=== PATIENT | male | born 1960 | race Caucasian/White ===

== ENCOUNTER 2022-03-16 02:49 | Inpatient (IN) ==
[2022-03-16] MEDS ORDERED: Nitroglycerin 0.4 MG TAB.SUBL SL PRN (03:04)
[2022-03-16 03:33] LABS: Basophils # 0.1 K/mcL (0.0-0.2); Eosinophils # 0.2 K/mcL (0.0-0.6); Eosinophils % 2.3 %; Hematocrit 50.4 % (37.5-50.1); Hemoglobin 16.7 g/dL (12.9-16.9); Immature Granulocytes % 0.3 % (0-4); Lymphocytes # 1.4 K/mcL (0.6-4.6); Lymphocytes % 15.7 %; Mean Corpuscular HGB Conc 33.1 g/dL (31.6-35.5); Mean Corpuscular Hemoglobin 30.7 pg (28.0-33.3); Mean Corpuscular Volume 92.6 fL (83.0-100.0); Mean Platelet Volume 11.3 fL (9.4-12.4); Monocytes # 0.7 K/mcL (0.0-1.3); Monocytes % 7.9 %; Neutrophils # 6.7 K/mcL (1.6-8.9); Platelet Count 160 K/mcL (140-400); Red Blood Count 5.44 M/mcL (4.19-5.50); Red Cell Distribution Width 12.3 % (11.5-14.5); Segmented Neutrophils % 72.8 %; White Blood Count 9.2 K/mcL (4.3-11.1)
[2022-03-16 03:44] LABS: Alanine Aminotransferase 12 Units/L (7-52); Albumin 4.4 g/dL (3.5-5.7); Albumin/Globulin Ratio 1.6 (1.1-2.2); Alkaline Phosphatase 96 Units/L (34-104); Aspartate Amino Transferase 10 Units/L (13-39); BUN/Creatinine Ratio 13 (6-26); Bilirubin,Direct 0.1 mg/dL (0.0-0.2); Bilirubin,Indirect 0.4 mg/dL (0.0-1.0); Bilirubin,Total 0.5 mg/dL (0.3-1.0); Blood Urea Nitrogen 15 mg/dL (8-23); Calcium 9.6 mg/dL (8.6-10.3); Carbon Dioxide 27 mEq/L (23-29); Chloride 102 mEq/L (98-107); Chol/HDL Ratio 6.7 (0-4.9); Cholesterol 221 mg/dL (< 200); Globulin 2.7 g/dL (2.4-3.5); Glucose 378 mg/dL (70-105); HDL Cholesterol 33 mg/dL (40-59); LDL Cholesterol,Calculated 125 mg/dL (< 100); Osmolality,Calculated 300 (280-300); Potassium 4.8 mEq/L (3.5-5.1); Sodium 137 mEq/L (136-145); Total Protein 7.1 g/dL (6.4-8.9); Triglycerides 314 mg/dL (< 150); eGFR For African Americans > 60 (> 60); eGFR For Non-African Americans > 60 (> 60)
[2022-03-16 03:47] LABS: Troponin I 0.09 ng/mL (< 0.04)
[2022-03-16] MEDS ORDERED: *HR* Heparin 5,000 UNIT/ML VIAL IVP ONE (03:50)
[2022-03-16] MEDS ORDERED: *HR* Heparin 5,000 UNIT/ML VIAL IVP PRN ×2 (03:50)
[2022-03-16 04:00] LABS: Thyroid Stimulating Hormone 1.664 mcIU/mL (0.340-5.600)
[2022-03-16] MEDS ORDERED: Heparin 25,000UNIT/250ML 1/2NS 25,000 UNIT/250 ML IV.SOLN IVC SCH (04:00)
[2022-03-16 04:08] LABS: Heparin anti-factor XA UFH < 0.04 IU/mL (0.30-0.70)
[2022-03-16 04:09] LABS: Prothrombin Time 11.2 Seconds (9.4-12.1)
[2022-03-16] MEDS ORDERED: *HR* FentaNYL (PF) 100 MCG/2 ML VIAL IVP ONE (04:19)
[2022-03-16 04:39] LABS: Hematocrit 49.7 % (37.5-50.1); Hemoglobin 16.9 g/dL (12.9-16.9); Mean Platelet Volume 11.1 fL (9.4-12.4); Platelet Count 170 K/mcL (140-400); Red Blood Count 5.46 M/mcL (4.19-5.50); Red Cell Distribution Width 12.4 % (11.5-14.5); White Blood Count 11.3 K/mcL (4.3-11.1)
[2022-03-16] MEDS ORDERED: *HR* Ticagrelor 90 MG TABLET PO ONE (05:15)
[2022-03-16] MEDS ORDERED: Heparin 1,000 UNITS/500 mL 1,000 ML ONE (05:44)
[2022-03-16] MEDS ORDERED: Iopamidol - 370 200 ML INFUS..BTL ONE ×2 (05:44→06:42)
[2022-03-16] MEDS ORDERED: *HR* Heparin 10,000 UNIT/10 ML VIAL ONE (05:44)
[2022-03-16] MEDS ORDERED: 0.9 % Sodium Chloride 1,000 ML ONE (05:44)
[2022-03-16] MEDS ORDERED: Nitroglycerin 1,000 MCG/5 ML VIAL IV ONE (05:44)
[2022-03-16] MEDS ORDERED: *HR* FentaNYL (PF) 100 MCG/2 ML VIAL ONE (05:57)
[2022-03-16] MEDS ORDERED: *HR* Midazolam HCl 2 MG/2 ML VIAL ONE (05:57)
[2022-03-16] MEDS ORDERED: Perflutren Lipid Microsphere 1.3 ML in 0.9 % Sodium Chloride 8.7 ML IVP PRN (08:34)
[2022-03-16] MEDS ORDERED: *HR* Dextrose 50 % in Water (Syg) 50 ML SYRINGE IVP PRN (09:22)
[2022-03-16] MEDS ORDERED: D5% in Water 1,000 ML IVC PRN (09:22)
[2022-03-16] MEDS ORDERED: Dextrose Gel 15 GM/37.5 ML TUBE PO PRN ×2 (09:22)
[2022-03-16] MEDS: Aspirin 81 MG TAB.CHEW PO SCH (10:29)
[2022-03-16] MEDS: *HR* Ticagrelor 90 MG TABLET PO SCH ×2 (10:29→20:38)
[2022-03-16] MEDS: 0.9 % Sodium Chloride 1,000 ML IVC SCH ×2 (10:29→20:37)
[2022-03-16] MEDS: Insulin LISPRO 300 UNITS/3 ML VIAL SUBQ SCH ×3 (12:22→20:38)
[2022-03-16] MEDS: Insulin DETEMIR 100 UNIT/ML X5UNITS SUBQ SCH (20:37)
[2022-03-17 05:28] LABS: Basophils % 0.6 %; Red Cell Distribution Width 12.8 % (11.5-14.5); Segmented Neutrophils % 70.6 %
[2022-03-17 05:29] LABS: Basophils # 0.1 K/mcL (0.0-0.2); Eosinophils # 0.1 K/mcL (0.0-0.6); Eosinophils % 1.2 %; Hematocrit 42.1 % (37.5-50.1); Immature Granulocytes % 0.2 % (0-4); Immature Platelets 7.7 % (1.1-6.1); Lymphocytes # 1.4 K/mcL (0.6-4.6); Lymphocytes % 16.3 %; Mean Corpuscular HGB Conc 33.3 g/dL (31.6-35.5); Mean Corpuscular Hemoglobin 30.6 pg (28.0-33.3); Mean Corpuscular Volume 92.1 fL (83.0-100.0); Mean Platelet Volume 11.2 fL (9.4-12.4); Monocytes % 11.1 %; Neutrophils # 6.1 K/mcL (1.6-8.9); Platelet Count 139 K/mcL (140-400); Red Blood Count 4.57 M/mcL (4.19-5.50); White Blood Count 8.7 K/mcL (4.3-11.1)
[2022-03-17 05:48] LABS: BUN/Creatinine Ratio 17 (6-26); Blood Urea Nitrogen 18 mg/dL (8-23); Calcium 8.6 mg/dL (8.6-10.3); Carbon Dioxide 26 mEq/L (23-29); Chloride 107 mEq/L (98-107); Glucose 210 mg/dL (70-105); Osmolality,Calculated 292 (280-300); Potassium 4.2 mEq/L (3.5-5.1); Sodium 137 mEq/L (136-145); eGFR For African Americans > 60 (> 60); eGFR For Non-African Americans > 60 (> 60)
[2022-03-17] MEDS: 0.9 % Sodium Chloride 1,000 ML IVC SCH (06:58)
[2022-03-17] MEDS: Insulin LISPRO 300 UNITS/3 ML VIAL SUBQ SCH ×4 (07:35→20:41)
[2022-03-17] MEDS: *HR* Ticagrelor 90 MG TABLET PO SCH ×2 (07:36→20:40)
[2022-03-17] MEDS: Aspirin 81 MG TAB.CHEW PO SCH (07:36)
[2022-03-17] MEDS ORDERED: Lisinopril-HCTZ 20-12.5mg TABLET PO SCH (09:00)
[2022-03-17] MEDS: Metoprolol XL (24 HR) Succ 25 MG TAB.ER.24H PO SCH (11:13)
[2022-03-17] MEDS: Insulin DETEMIR 100 UNIT/ML X5UNITS SUBQ SCH (20:41)
[2022-03-18 03:49] VITALS: TEMP 98.4
[2022-03-18 07:27] VITALS: BP 133/78; O2SAT 93
[2022-03-18] MEDS: Aspirin 81 MG TAB.CHEW PO SCH (07:58)
[2022-03-18] MEDS: Metoprolol XL (24 HR) Succ 25 MG TAB.ER.24H PO SCH (07:58)
[2022-03-18] MEDS: *HR* Ticagrelor 90 MG TABLET PO SCH (07:58)
[2022-03-18] MEDS: Insulin LISPRO 300 UNITS/3 ML VIAL SUBQ SCH (07:59)
[2022-03-18 08:09] VITALS: PULSE 94
[2022-03-18] MEDS ORDERED: lisinopriL 5 MG TABLET PO SCH (09:00)
== END 2022-03-18 11:19 | disposition home or self-care (01) | DRG 174 ==
LOC: 2NNU 02:49 → EMEROOARM 02:49 → 2NNU 06:08
PROVIDERS: ADMIT Internal Medicine Cardiovascular Disease; ATTEND Student in an Organized Health Care Education/Training Program